=== PATIENT | male | born 1995 | race Caucasian/White ===

== ENCOUNTER 2016-08-22 15:01 | Emergency (ER) | payer BC ==
[2016-08-22 15:19] VITALS: BP 128/83; PULSE 84; RESP 20; TEMP 98.3
--- NOTE | 2016-08-22 15:58 | ED ---
ENT HPI - General Chief complaint: ENT Stated complaint: poss pink eye Time Seen by Provider: 08/22/16 15:51 Source: patient, RN notes reviewed Mode of arrival: ambulatory Limitations: no limitations - History of Present Illness Initial comments: 20-year-old male presents emergency with chief complaint of left eye irritation 2 days. Patient's appendix is some symptoms. Patient has been trying either. With no relief. Patient denies any visual changes. Denies any ocular pain. No pain with movement. Denies any trauma. He states there is question the morning as purulent drainage. Patient states that he does not wear contacts. Patient offers no complaints. - Related Data Home Medications Medication Instructions Recorded Confirmed Naphazoline HCl/Glycerin [Clear 1 drop BOTH EYES QID PRN 08/22/16 08/22/16 Eyes Max Redness Rlf Drp] Previous Rx's Medication Instructions Recorded Tobramycin [Tobrex 0.3% Ophth Soln] 1 drop LEFT EYE Q4HR #5 ml 08/22/16 Allergies Allergy/AdvReac Type Severity Reaction Status Date / Time No Known Allergies Allergy Verified 08/22/16 15:58 Review of Systems ROS Statement: Those systems with pertinent positive or pertinent negative responses have been documented in the HPI. ROS Other: All systems not noted in ROS Statement are negative. Past Medical History Past Medical History: No Reported History History of Any Multi-Drug Resistant Organisms: None Reported Past Surgical History: Appendectomy Past Psychological History: No Psychological Hx Reported Smoking Status: Never smoker Past Alcohol Use History: None Reported Past Drug Use History: None Reported General Exam Limitations: no limitations General appearance: alert, in no apparent distress Head exam: Present: atraumatic, normocephalic, normal inspection Eye exam: Present: PERRL, EOMI, conjunctival injection (Left), other (Drainage noted of the left thigh). Absent: normal appearance, scleral icterus, periorbital swelling Expanded Visual acuity (R) = 20/: 20 Visual acuity (L) = 20/: 20 ENT exam: Present: normal exam, normal oropharynx, mucous membranes moist Neck exam: Present: normal inspection, full ROM. Absent: tenderness, meningismus, lymphadenopathy Respiratory exam: Present: normal lung sounds bilaterally. Absent: respiratory distress, wheezes, rales, rhonchi, stridor Cardiovascular Exam: Present: regular rate, normal rhythm, normal heart sounds. Absent: systolic murmur, diastolic murmur, rubs, gallop, clicks Course Vital Signs 08/22/16 15:13 Temperature 98.3 F Pulse Rate 84 Respiratory 20 Rate Blood Pressure 128/83 O2 Sat by Pulse 98 Oximetry Medical Decision Making - Medical Decision Making 20-year-old male present emergency department for prior dictation. Patient has conjunctivitis which her with Tobrex. Patient no trauma he has no photophobia and no decreased vision. Patient be given Dr. 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 Return parameters were discussed. Disposition Clinical Impression: Conjunctivitis Disposition: HOME SELF-CARE Condition: Stable Instructions: Conjunctivitis (ED) Additional Instructions: Please return to the Emergency Department if symptoms worsen or any other concerns. Prescriptions: Tobramycin [Tobrex 0.3% Ophth Soln] 1 drop LEFT EYE Q4HR #5 ml Referrals: None,Stated [Primary Care Provider] - 1-2 days Jerrod Alicea MD [STAFF PHYSICIAN] - 1-2 days Time of Disposition: 15:58
== END 2016-08-22 16:07 | disposition home or self-care (01) ==
LOC: EC 15:01
DX: H10.9 Unspecified conjunctivitis (principal)
CPT/HCPCS: 99283

== ENCOUNTER 2016-08-30 00:17 | Emergency (ER) | payer BC ==
[2016-08-30 00:44] VITALS: BP 122/72; PULSE 96; RESP 18; TEMP 98.6
[2016-08-30] MEDS ORDERED: TOBRAMYCIN 0.3% OPHTH DROPS 5 ML BTL RIGHT EYE STA (02:38)
[2016-08-30] MEDS ORDERED: KETOTIFEN 0.025% OPHTH DROPS 5 ML BTL RIGHT EYE STA (02:38)
--- NOTE | 2016-08-30 02:40 | ED ---
Eye Problem HPI - General Chief complaint: Eye Problems Stated complaint: Eye Problem-Revisit Time Seen by Provider: 08/30/16 02:31 Source: patient, RN notes reviewed Mode of arrival: ambulatory Limitations: no limitations - History of Present Illness Initial comments: 20-year-old male presents emergency Department chief complaint right eye irritation. Patient states that he has no pain no blurred vision no irritation. Patient states that he was seen here in emergency department 1 week ago. Patient was given Tobrex eye drops in which she states it is getting better but states is still slightly red. 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 He states that it makes it feel better but states he gets right after. Patient denies any history of ALLERGIC reactions NO KNOWN DRUG ALLERGIES. Patient states he has new [employer] but States Only His Right Eye. Patient States He Did Have Discharge Initially but States That Has Resolved. Patient Did Not Follow-Up with Sales Assistant [employer] As Directed. - Related Data Home Medications Medication Instructions Recorded Confirmed Naphazoline HCl/Glycerin [Clear 1 drop BOTH EYES QID PRN 08/22/16 08/30/16 Eyes Max Redness Rlf Drp] Previous Rx's Medication Instructions Recorded Tobramycin [Tobrex 0.3% Ophth Soln] 1 drop LEFT EYE Q4HR #5 ml 08/22/16 Allergies Allergy/AdvReac Type Severity Reaction Status Date / Time No Known Allergies Allergy Verified 08/30/16 00:44 Review of Systems ROS Statement: Those systems with pertinent positive or pertinent negative responses have been documented in the HPI. ROS Other: All systems not noted in ROS Statement are negative. Past Medical History Past Medical History: No Reported History History of Any Multi-Drug Resistant Organisms: None Reported Past Surgical History: Appendectomy Past Psychological History: No Psychological Hx Reported Smoking Status: Never smoker Past Alcohol Use History: None Reported Past Drug Use History: None Reported General Exam Limitations: no limitations General appearance: alert, in no apparent distress Head exam: Present: atraumatic, normocephalic, normal inspection Eye exam: Present: PERRL, EOMI, conjunctival injection (Mild right), other (No foreign body in normal mejia lamp). Absent: normal appearance, scleral icterus , periorbital swelling ENT exam: Present: normal exam, normal oropharynx, mucous membranes moist, TM's normal bilaterally, normal external ear exam Neck exam: Present: normal inspection, full ROM. Absent: tenderness, meningismus, lymphadenopathy Respiratory exam: Present: normal lung sounds bilaterally. Absent: respiratory distress, wheezes, rales, rhonchi, stridor Cardiovascular Exam: Present: regular rate, normal rhythm, normal heart sounds. Absent: systolic murmur, diastolic murmur, rubs, gallop, clicks Course Vital Signs 08/30/16 00:43 Temperature 98.6 F Pulse Rate 96 Respiratory 18 Rate Blood Pressure 122/72 O2 Sat by Pulse 99 Oximetry Medical Decision Making - Medical Decision Making 20-year-old male presents emergency department for right eye irritation. Patient was treated for conjunctivitis. Patient continues to have some injection. 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 Patient be given ALLERGY drops and follow-up with assistant quality manager tomorrow. Disposition Clinical Impression: Conjunctivitis, Eye irritation Disposition: HOME SELF-CARE Condition: Stable Instructions: Eye Lubricant (Into the eye) Additional Instructions: Follow-up with assistant quality manager as discussed. Please return to the Emergency Department if symptoms worsen or any other concerns. Referrals: None,Stated [Primary Care Provider] - 1-2 days Lopez Humphries MD [STAFF PHYSICIAN] - 1-2 days Time of Disposition: 02:40
== END 2016-08-30 03:11 | disposition home or self-care (01) ==
LOC: EC 00:17
DX: H10.9 Unspecified conjunctivitis (principal)
CPT/HCPCS: 99282

== ENCOUNTER 2016-12-06 17:08 | Emergency (ER) | payer BC ==
[2016-12-06 17:20] VITALS: BP 131/66; PULSE 78; RESP 20; TEMP 97.9
[2016-12-06] MEDS ORDERED: AZITHROMYCIN 500 MG TAB PO STA (17:28)
--- NOTE | 2016-12-06 17:31 | ED ---
General Adult HPI - General Chief complaint: Urogenital Stated complaint: STD Screening Time Seen by Provider: 12/06/16 17:21 Source: patient, RN notes reviewed Mode of arrival: ambulatory Limitations: no limitations - History of Present Illness Initial comments: Patient 21-year-old male who presents emergency room today with a chief complaint of needing to be checked for chlamydia. He does admit that his girlfriend was recently diagnosed with chlamydia. Patient states he is a symptomatic himself. Patient denies any other complaints or associated symptoms. Denies any past medical history. Patient denies any recent fever, chills, shortness of breath, chest pain, back pain, abdominal pain, nausea or vomiting, numbness or tingling, dysuria or hematuria, constipation or diarrhea, headaches or visual changes, or any other complaints. - Related Data Home Medications Medication Instructions Recorded Confirmed Naphazoline HCl/Glycerin [Clear 1 drop BOTH EYES QID PRN 08/22/16 08/30/16 Eyes Max Redness Rlf Drp] Previous Rx's Medication Instructions Recorded Tobramycin [Tobrex 0.3% Ophth Soln] 1 drop LEFT EYE Q4HR #5 ml 08/22/16 Allergies Allergy/AdvReac Type Severity Reaction Status Date / Time No Known Allergies Allergy Verified 12/06/16 17:20 Review of Systems ROS Statement: Those systems with pertinent positive or pertinent negative responses have been documented in the HPI. ROS Other: All systems not noted in ROS Statement are negative. Past Medical History Past Medical History: No Reported History History of Any Multi-Drug Resistant Organisms: None Reported Past Surgical History: Appendectomy Past Psychological History: No Psychological Hx Reported Smoking Status: Never smoker Past Alcohol Use History: None Reported Past Drug Use History: Marijuana General Exam - General Exam Comments Initial Comments: General: The patient is awake and alert, in no distress, and does not appear acutely ill. Eye: Pupils are equal, round and reactive to light, extra-ocular movements are intact. No nystagmus. There is normal conjunctiva bilaterally. No signs of icterus. Ears, nose, mouth and throat: There are moist mucous membranes and no oral lesions. Neck: The neck is supple, there is no tenderness or JVD. Cardiovascular: There is a regular rate and rhythm. No murmur, rub or gallop is appreciated. Respiratory: Lungs are clear to auscultation, respirations are non-labored, breath sounds are equal. No wheezes, stridor, rales, or rhonchi. Musculoskeletal: Normal ROM, no tenderness. Strength 5/5. Sensation intact. Pulses equal bilaterally 2+. Neurological: A&O x 3. CN II-XII intact, There are no obvious motor or sensory deficits. Coordination appears grossly intact. Speech is normal. Skin: Skin is warm and dry and no rashes or lesions are noted. Psychiatric: Cooperative, appropriate mood & affect, normal judgment. Limitations: no limitations Course Vital Signs 12/06/16 17:16 Temperature 97.9 F Pulse Rate 78 Respiratory 20 Rate Blood Pressure 131/66 O2 Sat by Pulse 99 Oximetry Medical Decision Making - Medical Decision Making Patient asymptomatic here in emergency room. Does admit to unprotected sex with his girlfriend tested positive for chlamydia. Patient will be treated with azithromycin here in the emergency room. Will have culture which is pending for both gonorrhea and chlamydia. Disposition Clinical Impression: STD exposure Disposition: HOME SELF-CARE Condition: Good Instructions: Sexually Transmitted Diseases (ED) Additional Instructions: Please refrain from any sexual contact until all symptoms have resolved and cultures have returned. Please return to emergency room if the symptoms increase or worsen or for any other concerns. Referrals: None,Stated [Primary Care Provider] - 1-2 days Time of Disposition: 17:30
== END 2016-12-06 18:01 | disposition home or self-care (01) ==
LOC: EC 17:08
DX: Z20.2 Contact with and (suspected) exposure to infections with a predominantly sexual mode of transmission (principal)
CPT/HCPCS: 87491; 87591; 99283

== ENCOUNTER 2017-04-06 19:45 | Emergency (ER) | payer BC ==
[2017-04-06 20:03] VITALS: BP 134/60; PULSE 84; RESP 18; TEMP 97.9
--- NOTE | 2017-04-06 20:18 | ED ---
General Adult HPI - General Chief complaint: ENT Stated complaint: ENT x4days Time Seen by Provider: 04/06/17 19:59 Source: patient, RN notes reviewed Mode of arrival: ambulatory Limitations: no limitations - History of Present Illness Initial comments: This is a 21-year-old male who presents to the emergency department with chief complaint of sore throat. Patient states he has been having a sore throat for the past 4 days. He states he has felt drained and tired and generally unwell. He states that after 8 hours of working he is "done for the day." Patient states that he also has nasal congestion and a cough productive of clear phlegm. He reports that 2 days ago he felt his left ear "pop" and has the same sensation after blowing his nose. He denies fevers, chills or body aches. Denies chest pain, shortness of breath, abdominal pain, nausea or vomiting, constipation or diarrhea, dysuria or hematuria, numbness or tingling, headache or vision changes. - Related Data Home Medications Medication Instructions Recorded Confirmed No Known Home Medications [No 12/06/16 12/06/16 Known Home Medications] Allergies Allergy/AdvReac Type Severity Reaction Status Date / Time No Known Allergies Allergy Verified 04/06/17 20:01 Review of Systems ROS Statement: Those systems with pertinent positive or pertinent negative responses have been documented in the HPI. ROS Other: All systems not noted in ROS Statement are negative. Past Medical History Past Medical History: No Reported History History of Any Multi-Drug Resistant Organisms: None Reported Past Surgical History: Appendectomy Past Psychological History: No Psychological Hx Reported Smoking Status: Never smoker Past Alcohol Use History: None Reported Past Drug Use History: Marijuana General Exam - General Exam Comments Initial Comments: General: Awake and alert, well-developed; in no apparent distress. HEENT: Head atraumatic, normocephalic. Pupils are equal, round and reactive to light. Extraocular movements intact. Oropharynx moist with moderate erythema. There is a white ulcer-appearing lesion on the right tonsil. No tonsillar enlargement. Bilateral TMs are pearly without effusion. Neck: Supple. Normal ROM. No adenopathy. Cardiovascular: Regular rate and rhythm. No murmurs, rubs or gallops. Chest symmetrical. Respiratory: Lungs clear to auscultation bilaterally. No wheezes, rales or rhonchi. Normal respiratory effort with no use of accessory muscles. Abdomen: Soft, non-tender, non-distended. No rigidity, rebound or guarding. Normal bowel sounds in all 4 quadrants. Skin: [place], warm and dry without rashes or lesions. Neurological: Alert and oriented x3. CN II-XII grossly intact. Speech is fluent and answers are appropriate. No focal neuro deficits. Psychiatric: Normal mood and affect. No overt signs of depression or anxiety noted. Limitations: no limitations Course Vital Signs 04/06/17 20:01 Temperature 97.9 F Pulse Rate 84 Respiratory 18 Rate Blood Pressure 134/60 O2 Sat by Pulse 98 Oximetry Medical Decision Making - Medical Decision Making This is a 21-year-old male who presents with chief complaint of sore throat 4 days. Rapid strep was performed and it was negative. Vitals are stable and patient is afebrile. Most likely viral upper respiratory infection. Patient will be discharged home with recommendation for supportive care. He is to follow-up with his primary care provider in 1-2 days. Patient is in agreement to the plan and voiced understanding. All questions were answered. - Lab Data Lab Results 04/06/17 Range/Units 20:01 Group A Strep Rapid Negative (Negative) Disposition Clinical Impression: Pharyngitis, Upper respiratory infection Disposition: HOME SELF-CARE Condition: Good Instructions: Pharyngitis (ED), Upper Respiratory Infection (ED) Additional Instructions: Please take medications as prescribed. Please follow up with primary care provider within 1-2 days. Return to emergency department if symptoms should worsen or any concerns arise. Referrals: None,Stated [Primary Care Provider] - 1-2 days Time of Disposition: 20:28
== END 2017-04-06 20:40 | disposition home or self-care (01) ==
LOC: EC 19:45
DX: J02.9 Acute pharyngitis, unspecified (principal)
CPT/HCPCS: 87081; 87430; 99283

== ENCOUNTER → 2018-08-10 | Outpatient (CLI) | payer BC ==
--- NOTE | 2018-08-10 14:05 | US ---
EXAMINATION TYPE: US abdomen complete DATE OF EXAM: 08/10/2018 COMPARISON: CT 2011 CLINICAL HISTORY: B27.9 Infectious mononucleosis, unspecified. [place] x 2 weeks, pt denies ABD pain EXAM MEASUREMENTS: Liver Length: 16.5 cm Gallbladder Wall: 0.2 cm CBD: 0.2 cm Spleen: 12.3 cm Right Kidney: 10.8 x 4.6 x 5.7 cm Left Kidney: 11.4 x 6.2 x 5.6 cm Pancreas: wnl Liver: wnl Gallbladder: Probable polyp anterior and posterior GB wall Evidence for sonographic Carl's sign: No CBD: wnl Spleen: wnl, splenule medial= 2.1 x 1.6 cm Right Kidney: wnl Left Kidney: wnl Upper IVC: wnl Abd Aorta: wnl The visualized liver is homogenous. The intrahepatic portion of the IVC and visualized abdominal aor ta are within normal limits. There is no evidence of shadowing mobile cholelithiasis. Common bile d uct is unremarkable. The visualized portions of the pancreas are homogenous. The spleen is unremark able. Kidneys are symmetric and free of hydronephrosis. No renal lesions are seen. IMPRESSION: Splenomegaly upper limits of normal in size. No suspicious acute findings identified.
== END | disposition home or self-care (01) ==
LOC: RADUSWWP 13:31
PROVIDERS: ATTEND Nurse Practitioner Family
DX: R16.1 Splenomegaly, not elsewhere classified (principal)
CPT/HCPCS: 76700

== ENCOUNTER 2018-08-20 16:17 | Emergency (ER) | payer BC ==
[2018-08-20 16:27] VITALS: TEMP 98.6
--- NOTE | 2018-08-20 17:32 | ED ---
General Adult HPI - General Chief complaint: Chest Pain Stated complaint: Chest pain/cyst on neck Time Seen by Provider: 08/20/18 16:51 Source: patient Mode of arrival: ambulatory Limitations: no limitations - History of Present Illness Initial comments: Dictation was produced using [employer] dictation software. please excuse any grammatical, word or spelling errors. Chief Complaint: 22-year-old male with no significant past medical history presents with chest pain History of Present Illness: 2-year-old on no significant past mental history presents with 4 days of chest pain. Patient states it is sharp and localized to the left chest. Denies any exacerbating or mitigating factors. No family history of cardiac disease. Patient states that is not worse with lying flat. Patient recently had mononucleosis. The ROS documented in this emergency department record has been reviewed and confirmed by me. Those systems with pertinent positive or negative responses have been documented in the HPI. All other systems are other negative and/or noncontributory. PHYSICAL EXAM: General Impression: Alert and oriented x3, not in acute distress HEENT: Normocephalic atraumatic, extra-ocular movements intact, pupils equal and reactive to light bilaterally, mucous membranes moist. Cardiovascular: Heart regular rate and rhythm, S1&S2 audible, no murmurs, rubs or gallops Chest: Lungs clear to auscultation bilaterally, no rhonchi, no wheeze, no rales Abdomen: Bowel sounds present, abdomen soft, non-tender, non-distended, no organomegaly Musculoskeletal: Pulses present and equal in all extremities, no peripheral edema Motor: no focal deficits noted Neurological: CN II-XII grossly intact, no focal motor or sensory deficits noted Skin: Intact with no visualized rashes Psych: Normal affect and mood ED course:-year-old male with no significant quantities presents with atypical chest pain. His upon arrival shows heart rate of 11, respiratory signs except limits. Patient is well-appearing. EKG is unremarkable. Two-view chest x-ray shows no acute processes. He is reevaluated found with stable medical condition. Patient clear for discharge. Told to follow-up with PCP provider. Patient given referral to outpatient cardiology for outpatient management of symptoms. EKG interpretation: Ventricular rate 88, normal sinus rhythm, IN interval 132, care is 80, QTc 41. No IN prolongation, no QTC prolongation, no ST or T-wave changes noted. . Overall, this EKG is unremarkable - Related Data Home Medications Medication Instructions Recorded Confirmed Multivitamins, Thera [Multivitamin 1 tab PO DAILY 08/20/18 08/20/18 (formulary)] Allergies Allergy/AdvReac Type Severity Reaction Status Date / Time No Known Allergies Allergy Verified 08/20/18 17:11 Review of Systems ROS Statement: Those systems with pertinent positive or pertinent negative responses have been documented in the HPI. ROS Other: All systems not noted in ROS Statement are negative. Past Medical History Past Medical History: No Reported History History of Any Multi-Drug Resistant Organisms: None Reported Past Surgical History: Appendectomy Past Psychological History: No Psychological Hx Reported Smoking Status: Never smoker Past Alcohol Use History: None Reported, Occasional Past Drug Use History: Marijuana General Exam Limitations: no limitations Course Vital Signs 08/20/18 16:23 Temperature 98.6 F Pulse Rate 101 H Respiratory 18 Rate Blood Pressure 148/80 O2 Sat by Pulse 100 Oximetry Disposition Clinical Impression: Chest pain Disposition: HOME SELF-CARE Condition: Good Instructions (If sedation given, give patient instructions): Chest Pain (ED) Is patient prescribed a controlled substance at d/c from ED?: No Referrals: Haley Avilez III, MD [Primary Care Provider] - 1-2 days Will Monaco MD [STAFF PHYSICIAN] - 1-2 days Time of Disposition: 18:14
--- NOTE | 2018-08-20 18:04 | XR ---
EXAMINATION TYPE: XR chest 2V DATE OF EXAM: 08/20/2018 COMPARISON: NONE HISTORY: Chest pain for 4 days. TECHNIQUE: Frontal and lateral views of the chest are obtained. FINDINGS: There is no focal air space opacity, pleural effusion, or pneumothorax seen. The cardiac silhouette size is within normal limits. The osseous structures are intact. IMPRESSION: No acute process.
[2018-08-20 18:36] VITALS: BP 136/76; PULSE 98; RESP 16
== END 2018-08-20 18:35 | disposition home or self-care (01) ==
LOC: EC 16:17
DX: R07.89 Other chest pain (principal); Z86.19 Personal history of other infectious and parasitic diseases
CPT/HCPCS: 71046; 93005; 99285

== ENCOUNTER 2018-11-11 19:49 | Emergency (ER) | payer BC ==
[2018-11-11 19:59] VITALS: TEMP 98.3
[2018-11-11] MEDS ORDERED: IBUPROFEN 800 MG TAB PO STA (20:09)
--- NOTE | 2018-11-11 20:13 | ED ---
General Adult HPI - General Source: patient, family Mode of arrival: ambulatory Limitations: no limitations <Real Pepe - Last Filed: 11/11/18 20:54> <Telma Aguayo - Last Filed: 11/12/18 03:16> - General Chief complaint: Urogenital Stated complaint: Testical pain Time Seen by Provider: 11/11/18 20:03 - History of Present Illness Initial comments: Patient is a 23-year-old male presents with a chief complaint of left-sided testicular pain. This is below average about 2-1/2 weeks. Patient cannot gustavo ntify an inciting incident. There are no alleviating factors though he states it is intermittent. Patient states that his pain is worse after working. 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 He denies any fever, chills, nausea or vomiting. He denies chest pain or shortness of breath. He denies dysuria. He denies injury to the area. He has not tried taking any medications for his pain. (Real Pepe) - Related Data Home Medications Medication Instructions Recorded Confirmed Omeprazole 20 mg PO DAILY 11/11/18 11/11/18 Allergies Allergy/AdvReac Type Severity Reaction Status Date / Time No Known Allergies Allergy Verified 11/11/18 20:17 Review of Systems ROS Other: All systems not noted in ROS Statement are negative. Genitourinary: Reports: testicular pain. Denies: urgency, dysuria <Real Pepe - Last Filed: 11/11/18 20:54> ROS Other: All systems not noted in ROS Statement are negative. <Telma Aguayo P - Last Filed: 11/12/18 03:16> ROS Statement: Those systems with pertinent positive or pertinent negative responses have been documented in the HPI. Past Medical History Past Medical History: No Reported History History of Any Multi-Drug Resistant Organisms: None Reported Past Surgical History: Appendectomy Past Psychological History: No Psychological Hx Reported Smoking Status: Never smoker Past Alcohol Use History: None Reported, Occasional Past Drug Use History: Marijuana <Real Pepe - Last Filed: 11/11/18 20:54> General Exam Limitations: no limitations General appearance: alert, in no apparent distress Head exam: Present: atraumatic, normocephalic Eye exam: Present: normal appearance ENT exam: Present: normal exam Neck exam: Present: normal inspection Respiratory exam: Present: normal lung sounds bilaterally. Absent: respiratory distress, wheezes Cardiovascular Exam: Present: regular rate, normal rhythm GI/Abdominal exam: Present: soft. Absent: distended, tenderness Rectal exam: Present: deferred exam: Present: normal inspection, testicular tenderness (Left side), circumcision. Absent: urethral discharge, scrotal swelling Extremities exam: Present: normal inspection Back exam: Present: normal inspection. Absent: CVA tenderness (R), CVA tenderness (L) Neurological exam: Present: alert, oriented X3 Psychiatric exam: Present: normal affect, normal mood Skin exam: Present: warm, dry, intact <Real Pepe - Last Filed: 11/11/18 20:54> Course Vital Signs 11/11/18 11/11/18 19:57 22:13 Temperature 98.3 F Pulse Rate 66 84 Respiratory 20 16 Rate Blood Pressure 131/72 109/61 O2 Sat by Pulse 99 99 Oximetry Medical Decision Making <Real Pepe - Last Filed: 11/11/18 20:54> <Telma Aguayo - Last Filed: 11/12/18 03:16> - Medical Decision Making Patient presents with a chief complaint of left-sided testicular pain. On initial evaluation, vitals are stable, patient is in no acute distress. He'll be evaluated with urinalysis and scrotal ultrasound. 8:55 PM UA negative for infection. patient currently in ultrasound. Case discussed with Dr. Aguayo who will follow results and dispo accordingly. (Real Pepe) Care was signed out to me by Dr. Pepe, patient's ultrasound was pending that time. Patient was resting comfortably. Ultrasound did reveal a very small cyst no other acute findings good blood flow no evidence of torsion. These results were discussed with the patient who expressed relief. This time patient is comfortable with the plan for discharge home. Patient confirm that Dr. Pepe of performed a hernia exam, I did not repeat this exam. (Telma Aguayo) - Lab Data Lab Results 11/11/18 Range/Units 20:40 Urine Color Yellow Urine Appearance Clear (Clear) Urine pH 7.0 (5.0-8.0) Ur Specific [place] 1.015 (1.001-1.035) Urine Protein Negative (Negative) Urine Glucose (UA) Negative (Negative) Urine Ketones Negative (Negative) Urine Blood Negative (Negative) Urine Nitrite Negative (Negative) Urine Bilirubin Negative (Negative) Urine Urobilinogen <2.0 (<2.0) mg/dL Ur Leukocyte Esterase Negative (Negative) Disposition <Real Pepe - Last Filed: 11/11/18 20:54> Is patient prescribed a controlled substance at d/c from ED?: No <Telma Aguayo - Last Filed: 11/12/18 03:16> Clinical Impression: Cyst of epididymis Disposition: HOME SELF-CARE Condition: Stable Instructions (If sedation given, give patient instructions): Testicle Pain (ED) Referrals: Haley Avilez III, MD [Primary Care Provider] - 1-2 days González Mariscal MD [STAFF PHYSICIAN] - 1-2 days
[2018-11-11 20:53] LABS: Appearance,Urine Clear (Clear); Bilirubin,Urine Negative (Negative); Blood,Urine Negative (Negative); Color,Urine Yellow; Glucose,Urine (UA) Negative (Negative); Ketones,Urine Negative (Negative); Leukocyte Esterase,Urine Negative (Negative); Nitrite,Urine Negative (Negative); Protein,Urine Negative (Negative); Specific Gravity,Urine 1.015 (1.001-1.035); Urobilinogen,Urine <2.0 mg/dL (<2.0)
--- NOTE | 2018-11-11 21:16 | US ---
EXAMINATION TYPE: US scrotum with doppler. Grayscale and color Doppler Duplex imaging performed of t alka scrotum. DATE OF EXAM: 11/11/2018 COMPARISON: NONE CLINICAL HISTORY: Pain. ongoing left scrotal pain for a while now, mild swelling, no injury EXAM MEASUREMENTS: TESTICLES: Right Testicle: 4.4 x 3.0 x 2.1 cm Left Testicle: 4.0 x 2.8 x 2.5 cm EPIDIDYMIS HEAD: Right Epididymis: 0.9 cm Left Epididymis: 0.9 cm, 0.4cm cyst seen within epi head Doppler performed to assess for testicular vascularity; good bilateral color flow and waveforms are s een. There is no evidence of testicular torsion. Presence of hydroceles: no Presence of varicoceles: no IMPRESSION: No testicular torsion or mass. Small 4 mm left-sided epididymal cyst.
[2018-11-11 22:14] VITALS: BP 109/61; PULSE 84; RESP 16
== END 2018-11-11 22:13 | disposition home or self-care (01) ==
LOC: EC 19:49
DX: N50.3 Cyst of epididymis (principal); Z79.899 Other long term (current) drug therapy
CPT/HCPCS: 76870; 81003; 93975; 99284

== ENCOUNTER 2019-03-29 15:46 | Emergency (ER) | payer BC ==
--- NOTE | 2019-03-29 16:45 | US ---
EXAMINATION TYPE: US scrotum with doppler. TECHNIQUE: Grayscale and color Doppler Duplex imaging performed of the scrotum. DATE OF EXAM: 03/29/2019 COMPARISON: NONE CLINICAL HISTORY: 23-year-old male scrotal pain, swelling. No swelling. Hx epididymal cyst. Findings: EXAM MEASUREMENTS: TESTICLES: Right Testicle: 3.6 x 3.8 x 2.4 cm for a volume of 16.8 mL Left Testicle: 4.3 x 3.8 x 2.2 cm for a volume of 19.2 mL Both testicles show homogeneous appearance without focal lesion. EPIDIDYMIS HEAD: Right Epididymis: 1.2 x 0.7 cm with a 3 mm epididymal head cyst. Left Epididymis: 1.0 x 0.7 cm with a 3 mm epididymal head cyst. Doppler performed to assess for testicular vascularity; good bilateral color flow and waveforms are s een. There is no evidence of testicular torsion. Presence of hydroceles: no Presence of varicoceles: no Right epididymal head cyst = 0.3 x 0.2 cm. Left epididymal head cyst = 0.3 x 0.2 cm IMPRESSION: No evidence for testicular torsion or epididymoorchitis. Aside from a tiny 3 mm epididymal head cyst on either side, no specific abnormality seen.
--- NOTE | 2019-03-29 17:30 | ED ---
General Adult HPI - General Chief complaint: Skin/Abscess/Foreign Body Stated complaint: MALE , LUMP ON NECK Time Seen by Provider: 03/29/19 15:52 Source: patient Mode of arrival: ambulatory Limitations: no limitations - History of Present Illness Initial comments: Patient is a 23-year-old male presenting to the emergency department with a chief complain of a testicular cyst. She reports he had an ultrasound of the scrotum several months ago and the noted a cyst on his testicle. Patient reports she did not follow-up with urology. Patient reports over the last week he has developed some heaviness especially after standing for prolonged periods of time. Patient denies any testicular swelling, erythema, penile pain or discharge. Patient denies taking any medication to alleviate the symptoms. Patient denies any trauma to the testicles. She denies any nausea vomiting or abdominal pain. - Related Data Home Medications Medication Instructions Recorded Confirmed Omeprazole 20 mg PO DAILY 11/11/18 11/11/18 Allergies Allergy/AdvReac Type Severity Reaction Status Date / Time No Known Allergies Allergy Verified 03/29/19 15:51 Review of Systems ROS Statement: Those systems with pertinent positive or pertinent negative responses have been documented in the HPI. ROS Other: All systems not noted in ROS Statement are negative. Past Medical History Past Medical History: No Reported History History of Any Multi-Drug Resistant Organisms: None Reported Past Surgical History: Appendectomy Past Psychological History: No Psychological Hx Reported Smoking Status: Never smoker Past Alcohol Use History: None Reported, Occasional Past Drug Use History: Marijuana General Exam Limitations: no limitations General appearance: alert, in no apparent distress Head exam: Present: atraumatic, normocephalic, normal inspection Eye exam: Present: normal appearance ENT exam: Present: normal exam Neck exam: Present: normal inspection Respiratory exam: Present: normal lung sounds bilaterally Cardiovascular Exam: Present: regular rate, normal rhythm, normal heart sounds exam: Present: normal inspection (Small left sided masses noted). Absent: testicular tenderness, urethral discharge, scrotal swelling, vertical testicular lie, circumcision Extremities exam: Present: normal inspection, full ROM Back exam: Present: normal inspection, full ROM Neurological exam: Present: alert, oriented X3 Psychiatric exam: Present: normal affect, normal mood Skin exam: Present: warm, intact, normal color Course Vital Signs 03/29/19 03/29/19 15:49 17:38 Temperature 98.5 F 98.4 F Pulse Rate 100 80 Respiratory 20 18 Rate Blood Pressure 145/89 130/72 O2 Sat by Pulse 99 99 Oximetry Medical Decision Making - Medical Decision Making Patient is a 23-year-old male presenting to emergency Department with a chief complaint of a testicular cyst. Physical examination is indicative of to bilateral testicular masses. No erythema or swelling noted. No penile discharge. No signs of testicular torsion, epididymitis or orchitis. Ultrasound with testicles is indicative of an epididymal cyst measuring approximately 3 mm on either testicle. Patient advised to follow-up with urology if he continues to have symptoms. Patient reassured that there is no acute processes occurring. Strict return parameters were thoroughly discussed the patient was understanding and agreeable. Case discussed physician. Disposition Clinical Impression: Epididymal cyst Disposition: HOME SELF-CARE Condition: Stable Instructions (If sedation given, give patient instructions): Scrotal Pain (ED) Additional Instructions: Please follow-up with urology. Please return to emergency department is symptoms worsen. Is patient prescribed a controlled substance at d/c from ED?: No Referrals: Haley Avilez III, MD [Primary Care Provider] - 1-2 days Bang Quach MD [STAFF PHYSICIAN] - 1-2 days Time of Disposition: 17:15
[2019-03-29 17:39] VITALS: BP 130/72; PULSE 80; RESP 18; TEMP 98.4
== END 2019-03-29 17:38 | disposition home or self-care (01) ==
LOC: EC 15:46
DX: N50.3 Cyst of epididymis (principal)
CPT/HCPCS: 76870; 93975; 99283

== ENCOUNTER → 2019-07-09 | Outpatient (CLI) | payer BC ==
--- NOTE | 2019-07-09 15:53 | US ---
EXAMINATION TYPE: US st tissue neck DATE OF EXAM: 07/09/2019 COMPARISON: NONE CLINICAL HISTORY: 23-year-old male R22.1 localized swelling mass lump neck. Pt states pain behind le ft ear and left lateral neck x 1 year TECHNIQUE: Targeted sonographic examination along the sites of patient pain and left ear and lateral aspect of the left neck. FINDINGS: Posterior to the left ear at the area of pt's pain was scan; a normal 3mm lymph node visualized Left lateral neck scanned in area of pt's pain, two lymph nodes just adjacent to left carotid space 1)= 0.7 cm AP measurement 2)= 1.0 x 0.9 cm AP measurement Both of these show a rounded configuration. IMPRESSION: 1. Targeted scanning posterior to the left ear shows a nonenlarged 3 mm lymph node. No other discrete sonographic abnormality of the superficial soft tissues in this region. Consider the possibility of other processes such as mastoiditis. 2. Additional targeted scanning lateral aspect of the left neck shows a couple prominent lymph nodes measuring up to 1 cm, likely reactive. These can be followed clinically. If any growth is noted, the area can be reimaged.
== END | disposition home or self-care (01) ==
LOC: RADUSWWP 14:36
PROVIDERS: ATTEND Family Medicine
DX: R22.1 Localized swelling, mass and lump, neck (principal)
CPT/HCPCS: 76536

== ENCOUNTER → 2020-01-14 | Outpatient (CLI) | payer BC ==
--- NOTE | 2020-01-15 07:49 | US ---
EXAMINATION TYPE: US scrotum with doppler. Grayscale and color Doppler Duplex imaging performed of t he scrotum. DATE OF EXAM: 01/14/2020 COMPARISON: NONE CLINICAL HISTORY: N50.3 Cyst of epididymis. EXAM MEASUREMENTS: TESTICLES: Right Testicle: 3.3 x 1.9 x 2.8 cm Left Testicle: 4.1 x 1.9 x 3.1 cm EPIDIDYMIS HEAD: Right Epididymis: 1.1 cm Left Epididymis: 1.1 cm Doppler performed to assess for testicular vascularity; good bilateral color flow and waveforms are s een. There is no evidence of testicular torsion. Presence of hydroceles: No Presence of varicoceles: Yes, on the right Cyst visualized right epididymis measuring 0.3cm. Two cysts visualized left epididymis, largest measu ring 0.4 cm IMPRESSION: 1. Epididymal cysts. 2. Right-sided varicoceles.
== END | disposition home or self-care (01) ==
LOC: RADUSWWP 16:27
PROVIDERS: ATTEND Family Medicine
DX: N50.3 Cyst of epididymis (principal); I86.1 Scrotal varices
CPT/HCPCS: 76870; 93975

== ENCOUNTER → 2020-01-14 | Outpatient (CLI) | payer BC ==
--- NOTE | 2020-01-14 17:48 | CT ---
EXAMINATION TYPE: CT brain wo con DATE OF EXAM: 01/14/2020 COMPARISON: None HISTORY: Headache, LT side pain/mastoid pain for about [address] DLP: 1090.[address] of the brain was performed. The ventricles, basal cisterns and sulci overlying the cerebral convexities demonstrate a normal appe arance. There is no evidence for intracranial hemorrhage or sulcal effacement. No mass effects are seen. Osseous calvarium is intact. If symptoms persist consider MRI as clinically warranted. IMPRESSION: 1. No acute intracranial process is seen at this time.
== END | disposition home or self-care (01) ==
LOC: RADCTMAIN 16:46
PROVIDERS: ATTEND Nurse Practitioner Family
DX: R51 Headache (principal)
CPT/HCPCS: 70450

== ENCOUNTER → 2020-03-13 | Outpatient (CLI) | payer BC ==
[2020-03-14 04:41] LABS: EBV-EA (IgG) 1.2 AI; EBV-EBNA(IgG) >8.0 AI; EBV-VCA (IgG) 7.2 AI; EBV-VCA (IgM) 0.8 AI
== END | disposition home or self-care (01) ==
LOC: LABWHC1 15:04
PROVIDERS: ATTEND Family Medicine
DX: R07.0 Pain in throat (principal); R50.9 Fever, unspecified
CPT/HCPCS: 86665 ×2; 86663; 86664; 87081; 87430; 36415; U0003

== ENCOUNTER → 2022-03-18 | Outpatient (CLI) | payer BC ==
--- NOTE | 2022-03-18 07:57 | MR ---
EXAMINATION TYPE: MR brain wo/w con DATE OF EXAM: 03/18/2022 COMPARISON: CT brain January 14, 2020 HISTORY: Headache TECHNIQUE: Multiplanar, multisequence images of the brain and brainstem is performed without and with IV contras t, utilizing 10 mL intravenous Gadavist . FINDINGS: Diffusion weighted images demonstrate no evidence of a recent infarct or other diffusion ab normality. There is no extra-axial fluid collection or significant white matter signal abnormality. The ventricular system and cisternal spaces are normal in size and appearance. The brain volume is age appropriate. Midline structures demonstrate normal morphology. The craniocervical junction appears within normal limits. Post contrast images demonstrate no abnormal enhancement. The dural venous sinuses appear pa tent. Severe mucosal thickening in the left maxillary sinus is now present. Mild focal mucosal thicke danilo anterior inferior right maxillary sinus. Geih-sm-eqlkkfei mucosal thickening throughout the ethm oid sinuses bilaterally. The globes are intact bilaterally. IMPRESSION: New maxillary and ethmoid sinus disease otherwise unremarkable study.
== END | disposition home or self-care (01) ==
LOC: RADMRIMAIN 06:30
PROVIDERS: ATTEND Family Medicine
DX: J32.9 Chronic sinusitis, unspecified (principal)
CPT/HCPCS: 70553; A9585

== ENCOUNTER 2024-12-06 17:23 | Emergency (ER) | payer BC ==
[2024-12-06] MEDS: ACETAMINOPHEN TAB 325 MG TAB PO STA (17:44)
[2024-12-06] MEDS: IBUPROFEN 600 MG TAB PO STA (17:44)
--- NOTE | 2024-12-06 17:53 | XR ---
EXAMINATION TYPE: XR shoulder complete LT DATE OF EXAM: 12/06/2024 5:49 PM INDICATION: Patient age:Male; 29 years old; Reason for study: injury; pain COMPARISON: Chest radiograph 08/20/2018 TECHNIQUE: The left shoulder was examined in AP, internally rotated and scapular Y projections. . FINDINGS: No evidence of acute osseous pathology, joint dislocation, or soft tissue swelling. The remaining por tions of the visualized chest are unremarkable. IMPRESSION: No acute osseous pathology. [facility], , 12/06/2024 5:51 PM
--- NOTE | 2024-12-06 18:17 | ED ---
Upper Extremity HPI - General Chief Complaint: Extremity Injury, Upper Stated Complaint: L Shoulder injury-Skateboard Time Seen by Provider: 12/06/24 17:36 Source: patient Mode of arrival: ambulatory Limitations: no limitations - History of Present Illness Initial Comments: 29-year-old male presenting with chief complaint of left shoulder injury. Patient was trying to do a trick on a skateboard when he fell onto the shoulder. He does have an abrasion to the shoulder. He does have range of motion but does have pain with range of motion. No numbness or tingling. No obvious deformity. - Related Data Home Medications Medication Instructions Recorded Confirmed Omeprazole 20 mg PO DAILY 11/11/18 11/11/18 Allergies Allergy/AdvReac Type Severity Reaction Status Date / Time No Known Allergies Allergy Verified 12/06/24 17:35 Review of Systems ROS Statement: Those systems with pertinent positive or pertinent negative responses have been documented in the HPI. ROS Other: All systems not noted in ROS Statement are negative. Past Medical History Past Medical History: No Reported History History of Any Multi-Drug Resistant Organisms: None Reported Past Surgical History: Appendectomy Past Psychological History: No Psychological Hx Reported Past Alcohol Use History: None Reported, Occasional Past Drug Use History: Marijuana General Exam Limitations: no limitations General appearance: alert, in no apparent distress Head exam: Present: atraumatic, normocephalic, normal inspection Eye exam: Present: normal appearance, EOMI Neck exam: Present: normal inspection. Absent: meningismus Respiratory exam: Absent: respiratory distress Cardiovascular Exam: Present: regular rate Left Shoulder Exam: Present: full ROM, tenderness, abrasion. Absent: swelling, deformity Vascular: Present: normal capillary refill, radial pulse (2+). Absent: vascular compromise Neurological exam: Present: alert, oriented X3 Psychiatric exam: Present: normal affect, normal mood Course Vital Signs 12/06/24 17:31 Temperature 98.3 F Pulse Rate 75 Respiratory 18 Rate Blood Pressure 122/84 O2 Sat by Pulse 100 Oximetry Medical Decision Making - Medical Decision Making Was pt. sent in by a medical professional or institution (, PA, SWINE EXTENSION FIELD SPECIALIST, urgent care, hospital, or half-way...) When possible be specific @ -No Did you speak to anyone other than the patient for history (EMS, parent, family, police, friend...)? What history was obtained from this source @ -No Did you review nursing and triage notes (agree or disagree)? Why? @ -I reviewed and agree with nursing and triage notes Were old charts reviewed (outside hosp., previous admission, EMS record, old EKG, old radiological studies, urgent care reports/EKG's, half-way records)? Report findings @ -No old charts were reviewed Differential Diagnosis (chest pain, altered mental status, abdominal pain women, abdominal pain men, vaginal bleeding, weakness, fever, dyspnea, syncope, headache, dizziness, GI bleed, back pain, seizure, CVA, palpatations, mental health, musculoskeletal)? @ -Differential Musculoskeletal Muscular strain, contusion, ligament sprain, fracture, arthritis, septic arthritis, bursitis, cellulitis, muscle spasm, nerve compression, DVT, arterial occlusion, herpes zoster, electrolyte abnormality, tumor.... This is not meant to be in all inclusive list EKG interpreted by me (3pts min.). @ -As above X-rays interpreted by me (1pt min.). @ -X-ray shows no acute osseous pathology CT interpreted by me (1pt min.). @ -None done U/S interpreted by me (1pt. min.). @ -None done What testing was considered but not performed or refused? (CT, X-rays, U/S, l abs)? Why? @ -None What meds were considered but not given or refused? Why? @ -None Did you discuss the management of the patient with other professionals (professionals i.e. , PA, SWINE EXTENSION FIELD SPECIALIST, lab, RT, psych nurse, high school social studies teacher, film painter, teacher, aboriginal liaison officer, disability case manager)? Give summary @ -No Was smoking cessation discussed for >3mins.? @ -No Was critical care preformed (if so, how long)? @ -No Were there social determinants of health that impacted care today? How? (Homelessness, low income, unemployed, alcoholism, drug addiction, transportation, low edu. Level, literacy, decrease access to med. care, halfway, rehab)? @ -No Was there de-escalation of care discussed even if they declined (Discuss DNR or withdrawal of care, Hospice)? DNR status @ -No What co-morbidities impacted this encounter? (DM, HTN, Smoking, COPD, CAD, Cancer, CVA, ARF, Chemo, Hep., AIDS, mental health diagnosis, sleep apnea, morbid obesity)? @ -None Was patient admitted / discharged? Hospital course, mention meds given and route, prescriptions, significant lab abnormalities, going to OR and other pertinent info. @ -29-year-old male presenting with chief complaint of left shoulder injury after falling off a skateboard. Neurovascularly intact. No obvious deformity. X-ray negative for acute osseous pathology. Patient educated on today's findings. Motrin Tylenol as needed for pain rest and ice the shoulder. Provided with a sling. Educated on supportive management. Follow-up with PCP. Report back to ER with any new or worsening symptoms. Discussed return parameters and answered all questions. Patient conveyed verbal understanding and agreed to the plan. I discussed this case in detail with my attending Dr. Dugan Undiagnosed new problem with uncertain prognosis? @ -No Drug Therapy requiring intensive monitoring for toxicity (Heparin, Nitro, Insulin, Cardizem)? @ -No Were any procedures done? @ -No Diagnosis/symptom? @ -Shoulder strain Acute, or Chronic, or Acute on Chronic? @ -Acute Uncomplicated (without systemic symptoms) or Complicated (systemic symptoms)? @ -Uncomplicated Side effects of treatment? @ -No Exacerbation, Progression, or Severe Exacerbation? @ -No Poses a threat to life or bodily function? How? (Chest pain, [place], [place], pneumonia, PE, COPD, DKA, ARF, appy, cholecystitis, CVA, Diverticulitis, Homicidal, Suicidal, threat to staff... and all critical care pts) @ -Unlikely Disposition Clinical Impression: Shoulder strain Disposition: HOME SELF-CARE Condition: Good Instructions (If sedation given, give patient instructions): Rotator Cuff Injury (ED) Additional Instructions: Follow-up with PCP. Report back to ER with any new or worsening symptoms. Motrin and Tylenol as needed for pain control. Rest and ice the shoulder. Is patient prescribed a controlled substance at d/c from ED?: No Referrals: Haley Avilez III, MD [Primary Care Provider] - 1-2 days Time of Disposition: 18:17
[2024-12-06 18:32] VITALS: BP 118/58; PULSE 70; RESP 20; TEMP 97.2
== END 2024-12-06 18:28 | disposition home or self-care (01) ==
LOC: EC 17:23
DX: S46.012A Strain of muscle(s) and tendon(s) of the rotator cuff of left shoulder, initial encounter (principal); V00.131A Fall from skateboard, initial encounter; Y93.51 Activity, roller skating (inline) and skateboarding
CPT/HCPCS: 99283